=== PATIENT | female | born 1960 | race Caucasian/White ===

== ENCOUNTER 2022-04-29 11:33 | Day surgery (SDC) | payer BC ==
[~2022-04-29 11:33] MED LIST: Lactated Ringers 1,000 ML IV ONE
[2022-04-29] MEDS ORDERED: Lactated Ringers 1,000 ML IV SCH (12:00)
[2022-04-29] MEDS ORDERED: CEFAZOLIN 2 GM-D5W BAG** 2 GM/50 ML ML IV SCH (12:00)
[2022-04-29] MEDS ORDERED: Zofran 4 MG/2 ML VIAL ONE (13:32)
[2022-04-29] MEDS ORDERED: DIPRIVAN 200 MG/20 ML IV ONE (13:32)
[2022-04-29] MEDS ORDERED: Decadron 4 MG INJ ONE (13:32)
[2022-04-29] MEDS ORDERED: SUBLIMAZE 100 MCG/2 ML ONE (13:33)
[2022-04-29] MEDS ORDERED: BRIDION 200MG/2ML IV ONE (13:43)
[2022-04-29] MEDS ORDERED: Versed 2 MG/2 ML Injection IV ONE (13:50)
[2022-04-29] MEDS ORDERED: Reglan 10 MG/2 ML IV ONE (13:52)
[2022-04-29] MEDS ORDERED: Transderm Scop 1.5MG Patch TOP ONE (13:52)
[2022-04-29] MEDS ORDERED: Zemuron 100 MG/10 ML ONE (13:55)
[2022-04-29] MEDS ORDERED: OFIRMEV 100 ML IV ONE (15:11)
[2022-04-29] MEDS ORDERED: Naropin 0.5% 30 ML VIAL ONE (16:16)
--- NOTE | 2022-04-29 16:36 | XRAY ---
Indication: Left foot Achilles tendon debridement/advancement and posterior superior calcanectomy. Intraoperative fluoroscopy provided for 51 seconds. 5 digital spot images ultimately demonstrates partial resection posterior calcaneus. Correlate with intraoperative findings/report.
--- NOTE | 2022-04-29 16:46 | XRAY ---
51 seconds of fluoroscopy was used in surgery for a left foot Achilles tendon debridement/advancement and posterior superior calcanectomy.
[2022-04-29 17:33] VITALS: BP 143/65; PULSE 68; O2SAT 99
--- NOTE | 2022-04-30 08:58 | OP ---
SURGERY DATE/TIME: 04/29/2022 1421 PREOPERATIVE DIAGNOSES: 1) Achilles tendonitis insertional. 2) Left Autumn's deformity. 3) Pain left ankle. POSTOPERATIVE DIAGNOSES: 1) Achilles tendonitis insertional. 2) Left Autumn's deformity. 3) Pain left ankle. PROCEDURES: Achilles tendon detachment, debridement calcaneal exostectomy and reattachment of Achilles tendon. SURGEON: Steve Helton DPM. WAREHOUSE PROCESSOR: None. ANESTHESIA: General plus a postoperative popliteal block. HEMOSTASIS: Thigh tourniquet set to 350 mm of Mercury for 61 total tourniquet minutes. ESTIMATED BLOOD LOSS: Less than 3 cc. MATERIALS: 2.0 Vicryl, 4-0 Monocryl, 3-0 Nylon, two - Ken 2.9 JuggerKnot with broadband and two - 4.5 mm Quattro Link. INJECTABLES: See anesthesia report for details. INDICATION FOR PROCEDURE: Stephanie is a very pleasant 61-year-old female who presented to my service with complaints of heel pain that had been ongoing for a significant amount of time. The patient has seen other providers for this issue in the past and was scheduled for surgery at some point in the past however suffered acute injury to the ipsilateral knee requiring surgery for that and the issue and the pain was put off for a significant amount of time. At this time the patient's symptomatology is consistent with Achilles tendonitis and pain associated with the Autumn's deformity. The patient understands all of the risks, benefits and complications of surgical intervention at this time including but not limited to infection, hematoma, seroma, possibility of rupture of the Achilles tendon possibility of delayed skin healing, delayed wound healing or nonskin healing or nonwound healing. There is a possibility that we have hardware surgical devices that result in potential rupture of the Achilles tendon and possible need for surgical intervention at that time. The patient understands all of these risks and wishes to proceed. Plenty of time was allowed to ask questions which were answered to the patient's apparent satisfaction. No guarantees were provided as to the outcome. It is with that we decided to proceed. DESCRIPTION OF PROCEDURE AND FINDINGS: The patient was brought into the OR and placed under general anesthesia by the anesthesia team on the cart. A well-padded thigh tourniquet was applied to the left thigh and the patient was transitioned from the cart to the bed in the prone position. The left lower extremity was prepped and draped in the typical sterile fashion. At this time attention was directed to the posterior aspect of the Achilles tendon and the palpable mass at the posterior aspect of the heel. A marking pen was utilized to map out the medial and lateral aspects of the Achilles tendon through the skin. A line was drawn at the dissection of these two. A full thickness incision was made at this time utilizing a 15 blade approximately 7 cm in length from the center of the Achilles down to the plantar fat pad of the heel dissecting the calcaneus. At this time the paratenon was incised and reflected off of the Achilles tendon. An incision was made down the central aspect of the Achilles tendon and an inverted T-incision was made reflecting the Achilles tendon off of the posterior aspect of the calcaneus. At this time significant calcaneal enthesophytes were identified and resected from the surgical site. A sagittal saw was then utilized to resect the posterior prominence of the Achilles tendon as well as the significant Autumn's deformity at the posterior superior aspect of the calcaneus. A rasp was then utilized to smooth down the bone surfaces until under a direct lateral significant improvement in the appearance of the calcaneus this total resection was approximately 1.5 cm at the biggest margin. The Achilles tendon was then palpated at the central aspect for any calcifications. Any calcifications that were encountered within the Achilles tendon were resected utilizing a 15 blade and a pair of pickups. At this time the left calcaneal bursa was then removed from the site. Following this, copious amounts of sterile saline were utilized to flush the surgical site. Following this, the proximal row of 2.9 mm Juggernauts were introduced into the proximal aspect under fluoroscopic guidance. These sutures were tested and were able to lift the leg off of the bed without pulling out. From that standpoint, sutures were passed through the tendon in an inverted T-type fashion. We approximated utilizing 4.5 mm Quattro Link to the distal aspect of the calcaneus with the Achilles tendon with the foot approximately 30 to 45 degrees plantar flexed relative to the orientation of the longitudinal axis of the leg. Following this, copious amounts of sterile saline were utilized to flush the site. Final pictures were taken utilizing fluoro. Paratenon was then repaired utilizing 4-0 Monocryl. 4-0 Monocryl was once again utilized to coapt the subcutaneous skin edges in a simple buried-type fashion. The skin was then coapted utilizing 3-0 Nylon in the horizontal mattress-type fashion. Following this, a suture guard was introduced at the distal and proximal aspects of the incision to reduce tension through the surgical site this was coapted utilizing 2-0 Nylon. Following this, dressing consisting of Betadine, Adaptic, 4x4's, Kerlix were applied to the left lower extremity and then a well-padded posterior splint with Shrestha compression dressing was applied. The patient was then provided a postoperative popliteal block. See anesthesia report for details. At this time, the patient was then reversed from anesthesia and returned to the postoperative anesthesia care unit with vital signs stable and vascular status intact. The patient handled the procedure as well as the anesthesia without significant complication. Postoperative orders as indicated in the patient's discharge chart.
== END 2022-04-29 18:15 | disposition home or self-care (01) ==
LOC: SDC 11:33
PROVIDERS: ATTEND Podiatrist Foot & Ankle Surgery
DX: M76.62 Achilles tendinitis, left leg (principal); M92.62 Juvenile osteochondrosis of tarsus, left ankle; M25.572 Pain in left ankle and joints of left foot; M67.874 Other specified disorders of tendon, left ankle and foot; M24.572 Contracture, left ankle
CPT/HCPCS: 27650; 28120; 73630; 76000; 93005; C1713; 64450; J0690; J1100; J2250; J2405; J2704; J2795; J3010; A9270-GY

== ENCOUNTER 2022-12-02 05:36 | Day surgery (SDC) | payer BC ==
[2022-12-02] MEDS ORDERED: Xylocaine 1% Vial 30 ML PF IJ ONE (05:50)
[2022-12-02] MEDS ORDERED: Marcaine Mpf 0.5% Vial 30 Ml ONE (05:50)
[2022-12-02] MEDS ORDERED: CEFAZOLIN 2 GM-D5W BAG** 2 GM/50 ML ML IV SCH (06:00)
[2022-12-02] MEDS ORDERED: Lactated Ringers 1,000 ML IV SCH (06:00)
[2022-12-02] MEDS ORDERED: DIPRIVAN 200 MG/20 ML IV ONE (06:18)
[2022-12-02] MEDS ORDERED: Versed 2 MG/2 ML Injection ONE (06:20)
[2022-12-02 06:30] LABS: Hematocrit 43.8 % (35-47); Hemoglobin 14.4 g/dL (12.0-16.0); Mean Cell Volume 96.5 fL (78-100); Mean Corpuscular Hemoglobin 31.7 pg (26-32); Mean Corpuscular Hgb Concent. 32.9 g/dL (32-36); Mean Platelet Volume 9.9 fL (7.5-11.0); Platelet Count 209 x10^3/uL (150-450); Red Blood Count 4.54 x10^6/uL (4.1-5.4); Red Cell Distribution Width 12.2 % (11.5-14.0); White Blood Count 6.2 x10^3/uL (4.0-10.5)
[2022-12-02] MEDS ORDERED: SUBLIMAZE 100 MCG/2 ML ONE (06:34)
[2022-12-02 06:52] LABS: ALBUMIN 4.2 g/dL (3.5-5.0); ALKALINE PHOSPHATASE 66 U/L (38-126); ANION GAP 10.2 MEQ/L (5-15); BLOOD UREA NITROGEN 15 mg/dL (7-17); CHLORIDE 105 mmol/L (98-107); Calcium 10.4 mg/dL (8.4-10.2); Carbon Dioxide 31 mmol/L (22-30); Creatinine 1 0.69 mg/dL (0.52-1.04); EST GLOMERULAR FILTRATION RATE > 60.0 ML/MIN; Glucose 96 mg/dL (74-106); Potassium 3.9 mmol/L (3.5-5.1); SGOT/AST 26 U/L (14-36); SGPT/ALT 23 U/L (0-35); SODIUM 142 mmol/L (137-145); Total Protein 7.4 g/dL (6.3-8.2)
[2022-12-02 11:25] VITALS: BP 125/69; PULSE 59; O2SAT 100
--- NOTE | 2022-12-02 13:27 | OP ---
SURGERY DATE/TIME: 12/02/2022 0633 PREOPERATIVE DIAGNOSES: 1) Left ankle pain. 2) Achilles insertional tendinopathy. POSTOPERATIVE DIAGNOSES: 1) Left ankle pain. 2) Achilles insertional tendinopathy. PROCEDURES: Achilles tendon debridement with repair left ankle. SURGEON: Steve Helton DPM. TEAM LEADER/RESEARCH PSYCHOLOGIST: None. ANESTHESIA: MAC sedation with an intraoperative local. See injectables for details. HEMOSTASIS: Thigh tourniquet set to 300 mm of Mercury for 24 total tourniquet minutes. ESTIMATED BLOOD LOSS: Minimal. INJECTABLES: 20 cc of a 1:1 mixture of 1% lidocaine plain and 0.5% bupivacaine plain injected in a V-block type fashion. INDICATION FOR PROCEDURE: Stephanie is a very pleasant 62-year-old female well known to my service for having had a Autumn's deformity along with an Achilles tendon debridement to the left ankle back in April 2022. The patient had complaints of pain shortly thereafter to the inner aspect of her left ankle at the medial border. It was discussed that the procedure that was performed did not remove the medial and lateral borders of the Achilles tendon for stability purposes and purpose of early weight bearing. At this time the patient has this new pain that does not respond to conservative therapy consisting of steroids, physical therapy, massage therapy, night splint and many others. At this time the patient is agreeable. We took an MRI back in October that demonstrated isolated Achilles tendinopathy with significant tendon degeneration extending approximately 7 mm x 1.4 cm respectively with the width and the length of the medial aspect of the tendon insertion. Options were discussed and due to the fact that the patient has failed conservative management, we decided to proceed with surgical intervention. At this time no guarantees have been provided as to the outcome. All risks, benefits and complications were discussed with the patient at length including but not limited to infection, hematoma, seroma, possibility of delayed wound healing, nonwound healing, possibility of failure of surgical intervention and possible need for surgical intervention at a later date. No guarantees were provided as to the outcome of surgical intervention. Plenty of time was allowed for the patient to ask questions which were answered to her apparent satisfaction. At this time we have decided to proceed. DESCRIPTION OF PROCEDURE AND FINDINGS: The patient was brought into the OR and placed on the OR table and placed on the table in supine position. At this time monitored anesthesia care was administered until the patient was sedated. A well-padded thigh tourniquet was applied to the patient's left thigh and the tourniquet was set to 300 mm of Mercury. At this time the left lower extremity was prepped and draped in the typical sterile fashion and lowered onto the surgical field. At this time an injection consisting of 20 cc of a 1:1 mixture of 1% lidocaine plain and 0.5% bupivacaine plain was injected in a V-block type fashion approximately 6 cm above the incision site. Once localized, a skin marker was utilized to lubna out the medial border of the Achilles tendon in line with the Achilles tendinosis. At this time a linear incision was made full thickness down to the level of the periosteum. The periosteum was dissected utilizing a 15 blade and the tendon was inspected on visual presentation. At this time significant yellowing of the tendon was identified. The debridement began utilizing a 15 blade which was utilized to resect a good amount of the medial aspect of the tendon until healthy pearly white tendon was inspected. A curette was then then utilized to debride a remnant of the tendon and copious amounts of sterile saline were utilized to flush the site. Further inspection of the tendon was carried out until it appeared that all tendon and longitudinal strands were uniform in nature and visually without disease. The tendon was handed off the field and at this time sent for pathologic assessment. Following this, copious amounts of sterile saline were utilized to flush the surgical site. A 2-0 Vicryl was then utilized to repair the tendon in an interlocking continuous stitch coapting the tendon. Repetitive load was applied to the foot which deemed to be construct stable. From that standpoint 4-0 Monocryl was then utilized to coapt the subcutaneous edges of the skin in a simple buried interrupted-type fashion and then 3-0 Nylon was utilized in a horizontal mattress-type fashion to coapt the skin edges in everted-type fashion. Following this the tourniquet was let down with 24 total tourniquet minutes. A dressing consisting of Betadine, Adaptic, 4x4, Kerlix and CAYLA were applied with moderate compression applied to the left lower extremity. The patient was then reversed from anesthesia and returned to the postoperative anesthesia care unit with vital signs stable and vascular status intact. The patient handled the anesthesia as well as the procedure without significant complication. Postoperative orders as indicated in the patient's discharge chart.
== END 2022-12-02 07:53 | disposition home or self-care (01) ==
LOC: SDC 05:36
PROVIDERS: ATTEND Podiatrist Foot & Ankle Surgery
DX: M76.62 Achilles tendinitis, left leg (principal); M25.572 Pain in left ankle and joints of left foot
CPT/HCPCS: 27654; 36415; 80053; 85027; 93005; J0690; J2001; J2250; J2704; J3010